=== PATIENT | male | born 1995 | race Caucasian/White ===

== ENCOUNTER 2019-08-10 18:59 | Observation (INO) | payer OTHER ==
[2019-08-10] MEDS ORDERED: LORazepam 2 MG/ML VIAL ONE ×2 (19:14→21:23)
[2019-08-10] MEDS ORDERED: LEVETIRACETAM 500 MG/5 ML VIAL IV ONE (19:49)
[2019-08-10] MEDS ORDERED: NA CHLORIDE 0.9% 1,000 ML ONE (19:49)
--- NOTE | 2019-08-10 20:08 | EDPHYS ---
Physician Documentation [facility] Name: David Huffman Age: 23 yrs Sex: Male : 1995 Arrival Date: 08/10/2019 Time: 19:09 Bed 27 Private MD: ED Physician Gordy Oliver HPI: 08/10 20:00 This 23 yrs old Male presents to ER via EMS with complaints of Probable jodie Seizure. 20:00 The patient presents after having a single isolated seizure, that lasted an unknown jodie period of time. Character of seizure(s): Loss of consciousness: the patient experienced loss of consciousness, Motor activity: generalized, Incontinence: none, Apnea: the patient did not experience apnea. Seizure onset: just prior to arrival. Context: the seizure(s) was witnessed, by police. Seizure Hx: it is unknown whether or not the patient has a previous seizure history. Associated injury: The patient did not suffer any apparent associated injury. The patient has experienced similar episodes in the past, a few times. Historical: - Allergies: 08/11 03:04 No Known Allergies; fc - Home Meds: 03:04 Keppra 500 mg Oral tab 1 tab 2 times per day [Active]; Tegretol 200 mg Oral tab 2 tabs fc every 12 hours [Active]; Zoloft 50 mg Oral tab 1 tab nightly [Active]; - PMHx: 03:04 Seizures; Depression; fc - PSHx: 08/10 19:19 Unable to obtain; tr5 - Immunization history:: Adult Immunizations unknown. - Social history:: Smoking status: unknown. - Ebola Screening: : No symptoms or risks identified at this time. - Family history:: not pertinent. ROS: 20:00 Constitutional: Negative for fever, chills, and weight loss, Eyes: Negative for injury, jodie pain, redness, and discharge, ENT: Negative for injury, pain, and discharge, Neck: Negative for injury, pain, and swelling, Cardiovascular: Negative for chest pain, palpitations, and edema, Respiratory: Negative for shortness of breath, cough, wheezing, and pleuritic chest pain, Abdomen/GI: Negative for abdominal pain, nausea, vomiting, diarrhea, and constipation, Back: Negative for injury and pain, : Negative for injury, bleeding, discharge, and swelling, MS/Extremity: Negative for injury and deformity, Skin: Negative for injury, rash, and discoloration, Psych: Negative for depression, anxiety, suicide ideation, homicidal ideation, and hallucinations, Allergy/Immunology: Negative for hives, rash, and allergies, Endocrine: Negative for neck swelling, polydipsia, polyuria, polyphagia, and marked weight changes, Hematologic/Lymphatic: Negative for swollen nodes, abnormal bleeding, and unusual bruising. 20:00 Neuro: Positive for seizure activity. Exam: 20:00 Constitutional: This is a well developed, well nourished patient who is awake, alert, jodie and in no acute distress. Head/Face: Normocephalic, atraumatic. Eyes: Pupils equal round and reactive to light, extra-ocular motions intact. Lids and lashes normal. Conjunctiva and sclera are non-icteric and not injected. Cornea within normal limits. Periorbital areas with no swelling, redness, or edema. ENT: Nares patent. No nasal discharge, no septal abnormalities noted. Tympanic membranes are normal and external auditory canals are clear. Oropharynx with no redness, swelling, or masses, exudates, or evidence of obstruction, uvula midline. Mucous membranes moist. Neck: Trachea midline, no thyromegaly or masses palpated, and no cervical lymphadenopathy. Supple, full range of motion without nuchal rigidity, or vertebral point tenderness. No Meningismus. Chest/axilla: Normal chest wall appearance and motion. Nontender with no deformity. No lesions are appreciated. Cardiovascular: Regular rate and rhythm with a normal S1 and S2. No gallops, murmurs, or rubs. Normal PMI, no JVD. No pulse deficits. Respiratory: Lungs have equal breath sounds bilaterally, clear to auscultation and percussion. No rales, rhonchi or wheezes noted. No increased work of breathing, no retractions or nasal flaring. Abdomen/GI: Soft, non-tender, with normal bowel sounds. No distension or tympany. No guarding or rebound. No evidence of tenderness throughout. Back: No spinal tenderness. No costovertebral tenderness. Full range of motion. Male : Normal genitalia with no discharge or lesions. Skin: Warm, dry with normal turgor. Normal color with no rashes, no lesions, and no evidence of cellulitis. MS/ Extremity: Pulses equal, no cyanosis. Neurovascular intact. Full, normal range of motion. Psych: Awake, alert, with orientation to person, place and time. Behavior, mood, and affect are within normal limits. 20:00 Neuro: Orientation: unable to test, Mentation: responsive to pain, Memory: unable to test, Cranial nerves: unable to test, Cerebellar function: unable to test, Motor: is normal, Deep tendon reflexes are 2+ (normal) in the bilateral brachioradialis, bicep, tricep and patellar and Achilles tendons, Babinski testing is normal, seizure activity, is not currently displayed, but the patient is post-ictal. Vital Signs: 19:00 BP 117 / 62; Pulse 82; Resp 26; Temp 98.9(TE); Pulse Ox 99% on R/A; tr5 20:04 BP 120 / 77; Pulse 82; Resp 30; Pulse Ox 100% on R/A; tr5 21:00 BP 135 / 68; Pulse 97; Resp 19; Pulse Ox 97% on R/A; tr5 22:00 BP 113 / 92; Pulse 76; Resp 17; Pulse Ox 97% on R/A; tr5 Garrison Coma Score: 19:19 Eye Response: to voice(3). Verbal Response: incomprehensible(2). Motor Response: tr5 withdraws from pain(4). Total: 9. Procedures: 20:03 Peripheral line: by aseptic technique a peripheral line was placed in the right [facility] external jugular vein. MDM: 19:30 Patient medically screened. [facility] 20:03 Data reviewed: vital signs, nurses notes, lab test result(s), EKG, radiologic studies, [facility] CT scan, plain films. 08/10 19:59 Order name: Basic Metabolic Panel; Complete Time: 21:59 [facility] 08/10 19:59 Order name: CBC with Diff; Complete Time: 21:59 [facility] 08/10 19:59 Order name: LFT's; Complete Time: 21:59 [facility] 08/10 19:59 Order name: Magnesium; Complete Time: 21:59 [facility] 08/10 19:59 Order name: NT PRO-BNP; Complete Time: 21:59 [facility] 08/10 19:59 Order name: PT-INR; Complete Time: 21:59 [facility] 08/10 19:59 Order name: Troponin (emerg Dept Use Only); Complete Time: 21:59 [facility] 08/10 19:59 Order name: Acetaminophen; Complete Time: 21:59 [facility] 08/10 19:59 Order name: ETOH Level; Complete Time: 21:59 [facility] 08/10 19:59 Order name: Ptt, Activated; Complete Time: 21:59 [facility] 08/10 19:59 Order name: Salicylate; Complete Time: 21:59 [facility] 08/10 19:59 Order name: Urine Drug Screen [facility] 08/10 19:59 Order name: Dilantin; Complete Time: 21:59 [facility] 08/10 19:59 Order name: Depakote; Complete Time: 21:59 [facility] 08/10 19:59 Order name: XRAY Chest (1 view); Complete Time: 21:59 [facility] 08/10 19:59 Order name: EKG; Complete Time: 20:01 [facility] 08/10 19:59 Order name: Tegretol Level; Complete Time: 21:59 [facility] 08/10 20:04 Order name: CT Head Brain wo Cont; Complete Time: 21:59 [facility] 08/10 21:45 Order name: CONS Pharmacy Consult [facility] 08/10 21:46 Order name: EEG Request [facility] 08/10 21:46 Order name: EEG Request [facility] 08/10 21:46 Order name: CBC with Automated Diff [facility] 08/10 21:46 Order name: CBC with Automated Diff [facility] 08/10 21:46 Order name: Comprehensive Metabolic Panel [facility] 08/10 21:46 Order name: Comprehensive Metabolic Panel [facility] 08/10 21:51 Order name: Urine Dipstick--Ancillary (enter results) [facility] 08/10 19:59 Order name: Cardiac monitoring; Complete Time: 20:13 [facility] 08/10 19:59 Order name: EKG - Nurse/Tech; Complete Time: 20:44 [facility] 08/10 19:59 Order name: IV Saline Lock; Complete Time: 20:13 [facility] 08/10 19:59 Order name: Labs collected and sent; Complete Time: 20:13 [facility] 08/10 19:59 Order name: O2 Per Protocol; Complete Time: 20:13 [facility] 08/10 19:59 Order name: O2 Sat Monitoring; Complete Time: 20:13 [facility] 08/10 19:59 Order name: Urine Dipstick-Ancillary (obtain specimen); Complete Time: 21:43 [facility] 08/10 19:59 Order name: Seizure Precautions; Complete Time: 20:13 [facility] 08/10 21:46 Order name: CONS Physician Consult [facility] 08/10 21:46 Order name: Regular EDMS Administered Medications: 20:00 Drug: Ativan 2 mg Route: IVP; Site: Other; tr5 20:40 Follow up: Response: No adverse reaction tr5 20:12 Drug: NS 0.9% 1000 ml Route: IV; Rate: 1 bolus; Site: right jugular; tr5 20:41 Follow up: IV Status: Completed infusion; IV Intake: 1000ml tr5 20:13 Drug: Keppra 1000 mg Route: IV; Rate: per protocol; Site: right jugular; tr5 20:40 Follow up: IV Status: Completed infusion; IV Intake: 1000ml tr5 21:40 Drug: Ativan 2 mg Route: IVP; Site: right jugular; 22:30 Follow up: Response: No adverse reaction tr5 Disposition: 08/10/19 20:31 Hospitalization ordered by Erick Tejada for Inpatient Admission. Preliminary diagnosis is Epilepsy and recurrent seizures. - Bed requested for Telemetry/MedSurg (Inpatient). - Status is Inpatient Admission. tr5 - Condition is Fair. - Problem is new. - Symptoms have improved. UTI on Admission? No Signatures: Dispatcher [employer] EDUT Gordy Oliver MD MD cha Therrien, Shelly, FINISH INSPECTOR-C FINISH INSPECTOR-Greerw Demetrice Patel RN RN Deng Boyd RN RN tr5 Corrections: (The following items were deleted from the chart) 20:29 20:08 08/10/2019 20:08 Transfer ordered to [facility]. Diagnosis is Epileptic jodie seizures related to external causes. Reason for transfer: Higher level of care. Accepting physician is to [facility]. Condition is Fair. Problem is new. Symptoms have improved. [facility] 21:48 20:31 Hospitalization Ordered by Erick Tejada MD for Inpatient Admission. Preliminary snw diagnosis is Epilepsy and recurrent seizures. Bed requested for Telemetry/MedSurg (Inpatient). Status is Inpatient Admission. Condition is Fair. Problem is new. Symptoms have improved. UTI on Admission? No. jodie 23:25 21:48 08/10/2019 20:31 Hospitalization Ordered by Erick Tejada MD for Inpatient tr5 Admission. Preliminary diagnosis is Epilepsy and recurrent seizures. Bed requested for Telemetry/MedSurg (Inpatient). Status is Inpatient Admission. Condition is Fair. Problem is new. Symptoms have improved. UTI on Admission? No. snw 08/11 03:04 08/10 19:19 Home Meds: Unable to obtain; tr5 08/11 03:04 08/10 19:19 PMHx: Unable to obtain; 5
--- NOTE | 2019-08-10 20:08 | ER ---
Nurse's Notes [facility] Name: David Huffman Age: 23 yrs Sex: Male : 1995 Arrival Date: 08/10/2019 Time: 19:09 Bed 27 Private MD: Diagnosis: Epilepsy and recurrent seizures Presentation: 08/10 19:15 Presenting complaint: EMS states: Pt is an inmate and was witnessed by security guards tr5 seizing 4 times in 20 minutes. Medical staff was not present at time of arrival so they were unable to obtain and history or medications. EMS witnessed pt seizing X2 and gave pt 5mg versed in route. Pt is actively seizing upon arrival also vomiting. EMS was unable to gain IV access. Transition of care: [place] unit. Onset of symptoms was August 10, 2019. Risk Assessment: Do you want to hurt yourself or someone else? Unable to obtain. Initial Sepsis Screen: Does the patient meet any 2 criteria? No. Patient's initial sepsis screen is negative. Does the patient have a suspected source of infection? No. Patient's initial sepsis screen is negative. Care prior to arrival: Medication(s) given: 5 Versed IN. 19:15 Method Of Arrival: EMS: [facility] tr5 19:15 Acuity: VARSHA 2 tr5 Triage Assessment: 19:19 General: Appears distressed, unkempt, Behavior is listless, quiet. Pain: Noted to be tr5 moaning. EENT: No signs and/or symptoms were reported regarding the EENT system. Neuro: Level of Consciousness is listless. Neuro: Seizure activity noted at this time. Cardiovascular: Heart tones present Capillary refill < 3 seconds Pulses are all present. Edema is absent. Respiratory: Airway is patent Trachea midline Respiratory effort is even, unlabored, Respiratory pattern is regular, symmetrical. GI: No signs and/or symptoms were reported involving the gastrointestinal system. : No signs and/or symptoms were reported regarding the genitourinary system. Derm: No signs and/or symptoms reported regarding the dermatologic system. Musculoskeletal: Capillary refill < 3 seconds, Range of motion: intact in all extremities. Historical: - Allergies: 08/11 03:04 No Known Allergies; fc - Home Meds: 03:04 Keppra 500 mg Oral tab 1 tab 2 times per day [Active]; Tegretol 200 mg Oral tab 2 tabs fc every 12 hours [Active]; Zoloft 50 mg Oral tab 1 tab nightly [Active]; - PMHx: 03:04 Seizures; Depression; fc - PSHx: 08/10 19:19 Unable to obtain; tr5 - Immunization history:: Adult Immunizations unknown. - Social history:: Smoking status: unknown. - Ebola Screening: : No symptoms or risks identified at this time. - Family history:: not pertinent. Screenin:19 Abuse screen: Denies threats or abuse. Nutritional screening: No deficits noted. tr5 Tuberculosis screening: No symptoms or risk factors identified. Fall Risk None identified. Assessment: 19:30 Reassessment: See triage. tr5 20:30 Reassessment: Patient appears in no apparent distress at this time. Pt laying in bed tr5 and non verbal. Pt has security guards at bedside. Pt foaming at the mouth. 21:50 Reassessment: Pt noted to be seizing, pts eyes twitching and pt foaming at the mouth. fc Discussed with Dr Oliver and pt given Ativan 2 mg ivp. 22:50 Reassessment: Patient appears in no apparent distress at this time. Patient and/or tr5 family updated on plan of care and expected duration. Pain level reassessed. 08/11 03:04 Reassessment: Lien with managed care called to get pts blood levels and give us pts fc hx. Vital Signs: 08/10 19:00 BP 117 / 62; Pulse 82; Resp 26; Temp 98.9(TE); Pulse Ox 99% on R/A; tr5 20:04 BP 120 / 77; Pulse 82; Resp 30; Pulse Ox 100% on R/A; tr5 21:00 BP 135 / 68; Pulse 97; Resp 19; Pulse Ox 97% on R/A; tr5 22:00 BP 113 / 92; Pulse 76; Resp 17; Pulse Ox 97% on R/A; tr5 Con Coma Score: 19:19 Eye Response: to voice(3). Verbal Response: incomprehensible(2). Motor Response: tr5 withdraws from pain(4). Total: 9. ED Course: 19:09 Patient arrived in ED. fc 19:10 Deng Liu, RN is Primary Nurse. tr5 19:15 Missed attempt(s): 22 gauge in left antecubital area. tr5 19:19 Triage completed. tr5 19:19 Call light in reach. Side rails up X 1. Security at bedside. Seizure precautions tr5 initiated. 19:19 Inserted saline lock: 22 gauge in right ,using aseptic technique. Leg. tr5 19:22 Missed attempt(s): 22 gauge in right hand. tr5 19:30 Gordy Oliver MD is Attending Physician. [facility] 19:50 Inserted saline lock: 20 gauge in right EJ, using aseptic technique. tr5 20:04 Arm band placed on. tr5 20:05 Awaiting for x-ray. tr5 20:21 XRAY Chest (1 view) In Process Unspecified. EDMS 20:30 Erick Tejada MD is Hospitalizing Provider. jodie 20:[address] via stretcher. tr5 20:38 CT Head Brain wo Cont In Process Unspecified. EDMS 21:34 Straight cath inserted, using sterile technique, 16 Fr. Specimen obtained. Returned lt1 clear yellow urine. Patient tolerated well. 22:51 No provider procedures requiring assistance completed. Patient admitted, IV remains in tr5 place. Administered Medications: 20:00 Drug: Ativan 2 mg Route: IVP; Site: Other; tr5 20:40 Follow up: Response: No adverse reaction tr5 20:12 Drug: NS 0.9% 1000 ml Route: IV; Rate: 1 bolus; Site: right jugular; tr5 20:41 Follow up: IV Status: Completed infusion; IV Intake: 1000ml tr5 20:13 Drug: Keppra 1000 mg Route: IV; Rate: per protocol; Site: right jugular; tr5 20:40 Follow up: IV Status: Completed infusion; IV Intake: 1000ml tr5 21:40 Drug: Ativan 2 mg Route: IVP; Site: right jugular; 22:30 Follow up: Response: No adverse reaction tr5 Intake: 20:40 IV: 1000ml; Total: 1000ml. tr5 20:41 IV: 1000ml; Total: 2000ml. tr5 Outcome: 20:08 ER care complete, transfer ordered by . jodie 20:31 Decision to Hospitalize by Provider. [facility] 22:51 Admitted to Med/surg accompanied by tech, via stretcher, with chart, Report called to tr5 Elda FONSECA 22:51 Condition: stable 22:51 Instructed on the need for admit. 23:25 Patient left the ED. tr5 Signatures: Dispatcher [employer] Gordy Hill MD MD cha Chretien, Felicia, RN RN Yenni Roberson Deng Nash RN RN tr5 Corrections: (The following items were deleted from the chart) 20:31 19:00 BP 117 / 62; Pulse 82bpm; Resp 26bpm; Pulse Ox 99% RA; tr5 grisel 08/11 03:04 08/10 19:19 Home Meds: Unable to obtain; tr5 08/11 03:04 08/10 19:19 PMHx: Unable to obtain; tr5
--- NOTE | 2019-08-10 20:26 | RAD REPORT ---
EXAM DESCRIPTION: RAD - Chest Single View - 08/10/2019 8:18 pm CLINICAL HISTORY: COUGH Chest pain. COMPARISON: CHEST SINGLE VIEW dated 09/20/2013 FINDINGS: Portable technique limits examination quality. The lungs are grossly clear. The heart is normal in size. No displaced fractures. IMPRESSION: No acute intrathoracic process suspected.
[2019-08-10 20:30] LABS: Absolute Lymphocytes (CBC) 1.5 K/uL (0.7-4.9); Basophils % 0.5 % (0-1.3); Hematocrit 33.7 % (39.6-49.0); Lymphocytes % 42.5 % (15.3-44.8); MPV 8.7 fL (7.6-11.3); RBC Red Blood Cell Count 3.59 M/uL (4.33-5.43)
[2019-08-10 20:36] LABS: Protime INR 1.15
--- NOTE | 2019-08-10 20:45 | RAD REPORT ---
EXAM DESCRIPTION: CT - Head Brain Wo Cont - 08/10/2019 8:37 pm CLINICAL HISTORY: Dizziness;Seizure Headache, drowsiness, seizure COMPARISON: <Comparisons> TECHNIQUE: All CT scans are performed using dose optimization technique as appropriate and may inclu de automated exposure control or mA/KV adjustment according to patient size. FINDINGS: No intracranial hemorrhage, hydrocephalus or extra-axial fluid collection.No areas of brai n edema or evidence of midline shift. The paranasal sinuses and mastoids are clear. The calvarium is intact. IMPRESSION: No acute intracranial abnormality.
[2019-08-10 20:58] LABS: ALT/SGPT 23 U/L (12-78); AST/SGOT 14 U/L (15-37); Alkaline Phosphatase 58 U/L (45-117); BUN Blood Urea Nitrogen 14 mg/dL (7-18); Bicarbonate 28 mmol/L (21-32); Bilirubin Direct < 0.1 mg/dL (0-0.2); Bilirubin Total 0.2 mg/dL (0.2-1.0); Glucose Level 85 mg/dL (74-106); Magnesium 2.1 mg/dL (1.8-2.4); NT PRO-BNP 13 pg/mL (<125); Phenytoin (Dilantin) Level < 0.4 ug/mL (10.0-20.0); Protein, Total 7.3 g/dL (6.4-8.2); Sodium Level 142 mmol/L (136-145); Troponin (Emerg Dept Use Only) < 0.02 ng/mL (0.0-0.045)
[2019-08-10 20:59] LABS: Valproic Acid (Depakene) Level < 3.0 ug/mL (50-100)
[2019-08-10] MEDS ORDERED: ONDANSETRON 4 MG/2 ML VIAL IV PRN (21:39)
[2019-08-10] MEDS ORDERED: ACETAMINOPHEN 500 MG TAB PO PRN (21:39)
[2019-08-10] MEDS: NA CHLORIDE 0.9% 1,000 ML IV SCH (22:00)
[2019-08-10 22:01] LABS: Barbiturates NEGATIVE (NEGATIVE); Benzodiazepines POSITIVE (NEGATIVE); Cocaine NEGATIVE (NEGATIVE); METHAMPHETAM NEGATIVE (NEGATIVE); Methadone NEGATIVE (NEGATIVE); Opiates NEGATIVE (NEGATIVE); Phencyclidine NEGATIVE (NEGATIVE); THC Cannibis NEGATIVE (NEGATIVE)
[2019-08-10 22:09] LABS: Urine Blood NEGATIVE (NEG); Urine Glucose NEGATIVE (NEG); Urine Protein NEGATIVE (NEG); Urine pH 7.5 (5.0-7.0)
[2019-08-10 23:57] VITALS: O2SAT 97; BMI 21.5
[2019-08-11] MEDS: NA CHLORIDE 0.9% 1,000 ML IV SCH (00:09)
[2019-08-11 06:15] LABS: ALT/SGPT 22 U/L (12-78); AST/SGOT 14 U/L (15-37); Albumin 3.5 g/dL (3.4-5.0); Alkaline Phosphatase 49 U/L (45-117); BUN Blood Urea Nitrogen 11 mg/dL (7-18); Bicarbonate 25 mmol/L (21-32); Bilirubin Total 0.2 mg/dL (0.2-1.0); Glucose Level 77 mg/dL (74-106); Potassium 4.1 mmol/L (3.5-5.1); Protein, Total 6.2 g/dL (6.4-8.2); Sodium Level 143 mmol/L (136-145)
[2019-08-11 06:19] LABS: Absolute Lymphocytes (CBC) 2.4 K/uL (0.7-4.9); Basophils % 0.6 % (0-1.3); Hematocrit 30.2 % (39.6-49.0); Lymphocytes % 52.2 % (15.3-44.8); MPV 9.8 fL (7.6-11.3); RBC Red Blood Cell Count 3.25 M/uL (4.33-5.43)
[2019-08-11] MEDS ORDERED: levETIRAcetam 500 MG TAB PO SCH (09:00)
[2019-08-11 09:25] VITALS: BP 126/75; TEMP 97.7
--- NOTE | 2019-08-11 12:35 | P.HP ---
Certification for Inpatient Patient admitted to: Observation With expected LOS: <2 Midnights Patient will require the following post-hospital care: None Practitioner: I am a practitioner with admitting privileges, knowledge of patient current condition, hospital course, and medical plan of care. Services: Services provided to patient in accordance with Admission requirements found in Title 42 Section 412.3 of the Code of Federal Regulations Patient History Date of Service: 08/10/19 Reason for admission: Seizures History of Present Illness: Patient is a 23-year-old inmate who apparently had 4 different seizures over a span of 20 minutes. Each time patient came around without any postictal state. Medical staff arrived in the [facility] and patient had 2 more seizures. At that time, patient was given Versed and brought by ambulance to our hospital. Patient has had another seizure while in the emergency room. This was witnessed. Patient was able to respond throughout the seizure. The patient has some weird finger movements. Patient will be admitted for further evaluation. Allergies No Known Allergies Allergy (Verified 08/11/19 02:40) Home Medications: Carbamazepine [Tegretol] 200 mg PO BID 08/11/19 Levetiracetam [Keppra] 750 mg PO BID 6AM 6PM #60 tablet 08/11/19 Sertraline [Zoloft*] 50 mg PO DAILY 08/11/19 - Past Medical/Surgical History Diabetic: No -: siezure -: depression Past Surgical History: Patient denies surgical history - Family History Father Family History: Reviewed- Non-Contributory - Social History Smoking Status: Never smoker Alcohol use: Yes Review of Systems 10-point ROS is otherwise unremarkable Physical Examination - Vital Signs Temperature: 97.7 F Blood Pressure: 126/75 Pulse: 52 Respirations: 17 Pulse Ox (%): 100 - Physical Exam General: Alert, In no apparent distress, Oriented x3 HEENT: Atraumatic, PERRLA, Mucous membr. moist/pink, EOMI, Sclerae nonicteric Neck: Supple, 2+ carotid pulse no bruit, No LAD, Without JVD or thyroid abnormality Respiratory: Clear to auscultation bilaterally, Normal air movement Cardiovascular: Regular rate/rhythm, Normal S1 S2, No murmurs Gastrointestinal: Normal bowel sounds, Soft and benign, Non-distended, No tenderness Musculoskeletal: No clubbing, No swelling, No tenderness Integumentary: No rashes Neurological: Normal gait, Normal speech, Normal strength at 5/5 x4 extr, Normal tone, Sensation intact, Cranial nerves 3-12 intact, Normal affect Lymphatics: No axilla or inguinal lymphadenopathy - Studies Laboratory Data (last 24 hrs) 08/10/19 20:00: PT 13.5 H, INR 1.15, APTT 31.4 08/10/19 20:00: WBC 3.6 L, Hgb 11.8 L, Hct 33.7 L, Plt Count 271 08/10/19 20:00: Sodium 142, Potassium 4.0, BUN 14, Creatinine 0.85, Glucose 85, Magnesium 2.1, Total Bilirubin 0.2, AST 14 L, ALT 23, Alkaline Phosphatase 58 Assessment & Plan - Problems (Diagnosis) (1) Pseudoseizures Current Visit: Yes Status: Acute - Plan Plan: 1. EEG 2. Continue Tamiflu 3. Continue Tegretol 4. Outpatient video EEG 5. Outpatient neurology follow-up 6. GI and DVT prophylaxis Discharge Plan: Home Plan to discharge in: 24 Hours - Advance Directives Does patient have a Living Will: No Does patient have a Durable POA for Healthcare: No - Code Status/Comfort Care Code Status Assessed: Yes Code Status: Full Code Critical Care: No Time Spent Managing PTS Care (In Minutes): 45
--- NOTE | 2019-08-11 12:43 | P.DS ---
Discharge Date: 08/11/19 Disposition: ROUTINE DISCHARGE Discharge Condition: GOOD Reason for Admission: Seizures - Problems (1) Pseudoseizures Current Visit: Yes Status: Acute Brief History of Present Illness: Patient is a 23-year-old inmate who apparently had 4 different seizures over a span of 20 minutes. Each time patient came around without any postictal state. Medical staff arrived in the detention and patient had 2 more seizures. At that time, patient was given Versed and brought by ambulance to our hospital. Patient has had another seizure while in the emergency room. This was witnessed. Patient was able to respond throughout the seizure. The patient has some weird finger movements. Patient will be admitted for further evaluation. Hospital Course: patient has done well. Patient will get EEG and will follow up with Neurology as an outpatient. Patient has pseudo seizure can return back to detention with continued seizure medications. Neurology follow-up and video EEG should be able to help resolve his diagnoses. Vital Signs/Physical Exam: Temp Pulse Resp BP Pulse Ox 97.7 F 52 17 126/75 100 08/11/19 12:36 08/11/19 12:36 08/11/19 12:36 08/11/19 12:36 08/11/19 12:36 General: Alert, In no apparent distress, Oriented x3 Laboratory Data at Discharge: WBC 4.6 K/uL (4.3-10.9) D 08/11/19 05:29 Hgb 10.7 g/dL (13.6-17.9) L 08/11/19 05:29 Hct 30.2 % (39.6-49.0) L 08/11/19 05:29 Plt Count 227 K/uL (152-406) 08/11/19 05:29 PT 13.5 SECONDS (9.5-12.5) H 08/10/19 20:00 INR 1.15 08/10/19 20:00 APTT 31.4 SECONDS (24.3-36.9) 08/10/19 20:00 Sodium 143 mmol/L (136-145) 08/11/19 05:29 Potassium 4.1 mmol/L (3.5-5.1) 08/11/19 05:29 BUN 11 mg/dL (7-18) 08/11/19 05:29 Creatinine 0.75 mg/dL (0.55-1.3) 08/11/19 05:29 Glucose 77 mg/dL (74-106) 08/11/19 05:29 Magnesium 2.1 mg/dL (1.8-2.4) 08/10/19 20:00 Total Bilirubin 0.2 mg/dL (0.2-1.0) 08/11/19 05:29 AST 14 U/L (15-37) L 08/11/19 05:29 ALT 22 U/L (12-78) 08/11/19 05:29 Alkaline Phosphatase 49 U/L (45-117) 08/11/19 05:29 Home Medications: Carbamazepine [Tegretol] 200 mg PO BID 08/11/19 Levetiracetam [Keppra] 750 mg PO BID 6AM 6PM #60 tablet 08/11/19 Sertraline [Zoloft*] 50 mg PO DAILY 08/11/19 New Medications: Levetiracetam [Keppra] 750 mg PO BID 6AM 6PM #60 tablet Patient Discharge Instructions: OK TO DC IV AND DC AFTER EEG COMPLETED. FOLLOW- UP WITH NEUROLOGY IN 1-2 WEEKS. INCREASE KEPPRA TO 750MG PO BID. RETURN TO THE ER IF SYMPTOMS WORSENS Diet: Regular Activity: Ad stefanie Time spent managing pt's care (in minutes): 30
--- NOTE | 2019-08-16 14:12 | EEG ---
CHART: [id number] TEST ID#: [id number] DATE OF STUDY: 08/11/2019 THE EEG WAS RECORDED [place] IN THE PATIENTS ROOM ON A 17 CHANNEL MACHINE. ELECTRODES WERE APPLIED IN THE USUAL MANNER USING THE INTERNATIONAL 10-20 SYSTEM. THE WAKING BACKGROUND RHYTHM IN THIS RECORD CONSISTS OF FAIRLY WELL DEVELOPED AND FAIRLY WELL ORGANIZED WAVES OF 9 HZ., MAXIMAL IN THE POSTERIOR HEAD REGIONS WHICH ATTENUATE NORMALLY WITH EYE OPENING. THERE IS A FOCUS MODERATE VOTLAGE 1.5-3 HZ ACTIVITY IN THE LEFT PARIETAL REGIONS (P3). THERE ARE NO FOCAL OR LATERALIZING FEATURES. NO EPILEPTIFORM ACTIVITY APPEARS. SLEEP DID NOT OCCUR. HYPERVENTILATION WAS PERFORMED WELL AND PRODUCED NO SIGNIFICANT CHANGE. PHOTIC STIMULATION PRODUCED POOR DRIVING BILATERALLY. IMPRESSION: THIS IS AN ABNORMAL AWAKE ROUTINE EEG DUE TO A FOCUS OF SLOW ACTIVITY IN THE LEFT PARIETAL REGION. THIS FINDING SUGGESTS THE PRESENCE OF A FOCAL LESION IN THIS REGION.
== END 2019-08-11 12:55 ==
LOC: ER 18:59 → ERHOLD 22:44 → 2ND 22:57
PROVIDERS: ADMIT Hospitalist; ATTEND Hospitalist
DX: G40.89 Other seizures (principal)
CPT/HCPCS: 96365; 95816; 85025 ×2; 80048; 36415; 80320; 83735; 80156; 80329 ×2; 85610; 80076; 80164; 80307 ×8; 85730; 80185; 81003; 84484; 80053; 83880; 70450; 71045; 51702; 96375; 99285; G0378 ×2; J1953; J7030

== ENCOUNTER 2019-08-11 22:19 | Emergency (ER) | payer OTHER ==
[2019-08-11] MEDS ORDERED: NA CHLORIDE 0.9% 1,000 ML ONE (22:59)
[2019-08-11] MEDS ORDERED: LORazepam 2 MG/ML VIAL ONE (23:29)
--- NOTE | 2019-08-12 01:03 | EDPHYS ---
Physician Documentation [facility] Name: David Huffman Age: 23 yrs Sex: Male : 1995 Arrival Date: 08/11/2019 Time: 22:30 Bed 15 Private MD: ED Physician Ian Briscoe HPI: 08/12 00:03 This 23 yrs old Male presents to ER via EMS with complaints of Probable gs Seizure. 00:03 The patient presents with a history of multiple seizures. Character of seizure(s): gs Motor activity: focal activity, Incontinence: none, Circulation: the patient did not experience evidence of pulse disturbance. Seizure onset: this morning. Seizure Hx: Last seizure: The patient's last seizure was approximately 1 day(s) ago. Associated injury: The patient did not suffer any apparent associated injury. The patient has experienced similar episodes in the past, multiple times. Historical: - Allergies: 08/11 22:10 No Known Allergies; jb4 - Home Meds: 22:10 Keppra 750 mg oral tab [Active]; Tegretol 200 mg Oral tab 2 tabs every 12 hours jb4 [Active]; Zoloft 50 mg Oral tab 1 tab nightly [Active]; - PMHx: 22:10 Depression; Seizures; jb4 - PSHx: 22:10 None; jb4 - Immunization history:: Adult Immunizations unknown. - Social history:: Smoking status: unknown. - Ebola Screening: : No symptoms or risks identified at this time. ROS: 08/12 00:03 All other systems are negative. gs Exam: 00:03 Head/Face: Normocephalic, atraumatic. Eyes: Pupils equal round and reactive to light, gs extra-ocular motions intact. Lids and lashes normal. Conjunctiva and sclera are non-icteric and not injected. Cornea within normal limits. Periorbital areas with no swelling, redness, or edema. ENT: Nares patent. No nasal discharge, no septal abnormalities noted. Tympanic membranes are normal and external auditory canals are clear. Oropharynx with no redness, swelling, or masses, exudates, or evidence of obstruction, uvula midline. Mucous membranes moist. Neck: Trachea midline, no thyromegaly or masses palpated, and no cervical lymphadenopathy. Supple, full range of motion without nuchal rigidity, or vertebral point tenderness. No Meningismus. Chest/axilla: Normal chest wall appearance and motion. Nontender with no deformity. No lesions are appreciated. Cardiovascular: Regular rate and rhythm with a normal S1 and S2. No gallops, murmurs, or rubs. Normal PMI, no JVD. No pulse deficits. Respiratory: Lungs have equal breath sounds bilaterally, clear to auscultation and percussion. No rales, rhonchi or wheezes noted. No increased work of breathing, no retractions or nasal flaring. Abdomen/GI: Soft, non-tender, with normal bowel sounds. No distension or tympany. No guarding or rebound. No evidence of tenderness throughout. Back: No spinal tenderness. No costovertebral tenderness. Full range of motion. Skin: Warm, dry with normal turgor. Normal color with no rashes, no lesions, and no evidence of cellulitis. MS/ Extremity: Pulses equal, no cyanosis. Neurovascular intact. Full, normal range of motion. 00:03 Constitutional: The patient appears alert, awake. 00:59 Neuro: Orientation: to person, place, situation, Cranial nerves: CN II- XII are normal gs as tested, Motor: moves all fours, Sensation: no acute changes. Vital Signs: 08/11 22:10 BP 130 / 94; Pulse 119; Resp 18; Temp 99.0(TE); Pulse Ox 100% on R/A; Weight 72.57 kg 4 (R); Height 5 ft. 10 in. (177.80 cm) (R); Pain 0/10; 22:52 BP 111 / 65; Pulse 108; Resp 23; Pulse Ox 100% on R/A; jb4 23:45 BP 131 / 82; Pulse 91; Resp 21; Pulse Ox 99% on 2 lpm NC; 4 08/12 01:15 BP 127 / 75; Pulse 69; Resp 17; Pulse Ox 99% on R/A; 4 08/11 22:10 Body Mass Index 22.96 (72.57 kg, 177.80 cm) banner MDM: 08/11 22:39 Patient medically screened. 08/12 00:59 Differential diagnosis: seizure. Data reviewed: vital signs, nurses notes. Response to gs treatment: the patient's symptoms have markedly improved after treatment, the patient's condition has returned to base line. 01:02 ED course: examined now awake alert back to baseline. 08/12 00:42 Order name: Creatine Phosphokinase; Complete Time: 01:36 EDMS Administered Medications: 08/11 23:15 Drug: NS 0.9% 1000 ml Route: IV; Rate: 150 ml/hr; Site: left hand; banner 08/12 01:51 Follow up: Response: No adverse reaction; IV Status: Infusion continued upon transfer; banner IV Intake: 300ml 08/11 23:32 Drug: Ativan 1 mg Route: IVP; Site: left hand; banner 08/12 00:00 Follow up: Response: No adverse reaction; Marked relief of symptoms banner Disposition: 08/12/19 01:02 Transfer ordered to [facility]. Diagnosis is Epilepsy and recurrent seizures. - Reason for transfer: Higher level of care. - Accepting physician is [facility]. - Condition is Stable. - Problem is an acute exacerbation. - Symptoms have improved. Signatures: Dispatcher [employer] [facility] Bayron Sprague RN RN 4 Ian Briscoe MD MD Corrections: (The following items were deleted from the chart) 01:33 01:28 CREATINE PHOSPHOKINASE+C.LAB.BRZ ordered. [facility] EDMS 01:52 01:02 08/12/2019 01:02 Transfer ordered to [facility]. Diagnosis is jb4 Epilepsy and recurrent seizures. Reason for transfer: Higher level of care. Accepting physician is [facility]. Condition is Stable. Problem is an acute exacerbation. Symptoms have improved.
--- NOTE | 2019-08-12 01:03 | ER ---
Nurse's Notes [facility] Name: David Huffman Age: 23 yrs Sex: Male : 1995 Arrival Date: 08/11/2019 Time: 22:30 Bed 15 Private MD: Diagnosis: Epilepsy and recurrent seizures Presentation: 08/11 22:10 Presenting complaint: EMS states: PT reportedly had 4-5 seizures prior to arrival. had jb4 2 witnessed seizure. was given 4mg ov Ativan total IV. 22:10 Transition of care: patient was not received from another setting of care. Onset of jb4 symptoms was August 11, 2019. Risk Assessment: Do you want to hurt yourself or someone else? Patient reports no desire to harm self or others. Initial Sepsis Screen: Does the patient meet any 2 criteria? No. Patient's initial sepsis screen is negative. Does the patient have a suspected source of infection? No. Patient's initial sepsis screen is negative. 22:10 Method Of Arrival: EMS: [facility] jb4 22:10 Acuity: VARSHA 2 jb4 22:10 Care prior to arrival: Medication(s) given: Ativan IV, 4mg IV initiated. 22 GA, in the jb4 left hand. Historical: - Allergies: 22:10 No Known Allergies; jb4 - Home Meds: 22:10 Keppra 750 mg oral tab [Active]; Tegretol 200 mg Oral tab 2 tabs every 12 hours jb4 [Active]; Zoloft 50 mg Oral tab 1 tab nightly [Active]; - PMHx: 22:10 Depression; Seizures; jb4 - PSHx: 22:10 None; jb4 - Immunization history:: Adult Immunizations unknown. - Social history:: Smoking status: unknown. - Ebola Screening: : No symptoms or risks identified at this time. Screenin:10 Abuse screen: Denies threats or abuse. Nutritional screening: No deficits noted. jb4 Tuberculosis screening: No symptoms or risk factors identified. Fall Risk None identified. Assessment: 22:10 General: Appears Postictal . Behavior is Postictal. Pupils are dialated and reactive to jb4 light.. Pain: Denies pain. Neuro: Level of Consciousness is post ictal, Oriented to Postictal. Cardiovascular: Patient's skin is warm and dry. Rhythm is sinus rhythm. Respiratory: Airway is patent Respiratory effort is even, unlabored, Respiratory pattern is regular, symmetrical. GI: No deficits noted. No signs and/or symptoms were reported involving the gastrointestinal system. : No deficits noted. No signs and/or symptoms were reported regarding the genitourinary system. EENT: No deficits noted. No signs and/or symptoms were reported regarding the EENT system. Derm: Skin is intact, Skin is pink, warm \T\ dry. Musculoskeletal: Circulation, motion, and sensation intact. 23:19 Reassessment: No changes from previously documented assessment. PT having seizure like jb4 activity, ammonia capsule used. No effect noted. Pt continued to seize. Provider notified. Third seizure noted. Respirations even and unlabored, pt suctioned. no other obstructions noted. 23:31 Reassessment: PT is actively seizing noted. Provider notified see [facility] for orders. jb4 23:52 Reassessment: Patient appears in no apparent distress at this time. Patient and/or jb4 family updated on plan of care and expected duration. Pain level reassessed. Patient is alert, oriented x 3, equal unlabored respirations, skin warm/dry/pink. PT improved, is awake and alert. Able to answer questions. Pupils have returned to normal and are reactive to light. 08/12 01:00 Reassessment: Patient appears in no apparent distress at this time. Patient and/or jb4 family updated on plan of care and expected duration. Pain level reassessed. Patient is alert, oriented x 3, equal unlabored respirations, skin warm/dry/pink. PT awake and alert. Is communicating, Pupils are PERRLA. Respirations are even and unlabored. 01:42 Reassessment: Patient appears in no apparent distress at this time. Patient and/or jb4 family updated on plan of care and expected duration. Pain level reassessed. Patient is alert, oriented x 3, equal unlabored respirations, skin warm/dry/pink. PT transferred to [facility] via [facility]. Pt is awake and alert, conversing with [facility] guards and medical staff. Respirations are even and unlabored. Is oriented to place, time, self, and situation. Vital Signs: 08/11 22:10 BP 130 / 94; Pulse 119; Resp 18; Temp 99.0(TE); Pulse Ox 100% on R/A; Weight 72.57 kg jb4 (R); Height 5 ft. 10 in. (177.80 cm) (R); Pain 0/10; 22:52 BP 111 / 65; Pulse 108; Resp 23; Pulse Ox 100% on R/A; jb4 23:45 BP 131 / 82; Pulse 91; Resp 21; Pulse Ox 99% on 2 lpm NC; jb4 08/12 01:15 BP 127 / 75; Pulse 69; Resp 17; Pulse Ox 99% on R/A; jb4 08/11 22:10 Body Mass Index 22.96 (72.57 kg, 177.80 cm) jb4 ED Course: 08/11 22:10 Arm band placed on right wrist. jb4 22:10 Patient has correct armband on for positive identification. Placed in gown. Bed in low jb4 position. Call light in reach. Side rails up X2. Seizure precautions initiated. tapeman on. Pulse ox on. NIBP on. 22:30 Patient arrived in ED. 4 22:34 Triage completed. 4 22:39 Ian Briscoe MD is Attending Physician. 23:52 Bayron Sprague, RN is Primary Nurse. [facility] 08/12 01:42 No provider procedures requiring assistance completed. Patient admitted, IV remains in jb4 place. Administered Medications: 08/11 23:15 Drug: NS 0.9% 1000 ml Route: IV; Rate: 150 ml/hr; Site: left hand; 4 08/12 01:51 Follow up: Response: No adverse reaction; IV Status: Infusion continued upon transfer; [facility] IV Intake: 300ml 08/11 23:32 Drug: Ativan 1 mg Route: IVP; Site: left hand; 4 08/12 00:00 Follow up: Response: No adverse reaction; Marked relief of symptoms jb4 Intake: 01:51 IV: 300ml; Total: 300ml. 4 Outcome: 01:02 ER care complete, transfer ordered by . 01:42 Transferred by ground EMS . to [facility], Transfer form jb4 completed. 01:42 Condition: stable 01:42 Discharge instructions given to patient, police, EMS, Instructed on the need for transfer, Demonstrated understanding of instructions. 01:52 Patient left the ED. jb4 Signatures: Bayron Sprague RN RN jb4 Ian Briscoe MD MD Corrections: (The following items were deleted from the chart) 08/11 23:58 22:10 General: Appears Postictal . Behavior is Postictal. jb4 jb4 :58 23:19 Reassessment: PT having seizure like activity, ammonia capsule used. No effect jb4 noted. Pt continued to seize. Provider notified. Third seizure noted. Respirations even and unlabored, pt suctioned. no other obstructions noted. jb4
[2019-08-12 02:00] VITALS: O2SAT 99
[2019-08-12 02:01] VITALS: BP 127/75
== END 2019-08-12 01:52 | disposition short-term general hospital (02) ==
LOC: ER 22:19
DX: G40.909 Epilepsy, unspecified, not intractable, without status epilepticus (principal)
CPT/HCPCS: 36415; 82550; 96361; 96374; 99285; J7030